=== PATIENT | female | born 1970 | race Caucasian/White ===

== ENCOUNTER 2020-09-25 06:03 | Day surgery (SDC) | payer BC ==
[~2020-09-25] VITALS: Ht 152.4 cm; Wt 71.7 kg
--- NOTE | 2020-09-25 07:42 | NUR ---
Ambulatory in Day Surgery History, Chart, Medications and Allergies reviewed before start of procedure.Patient confirms NPO status and agrees with scheduled surgery. Patient reports completing Chlorhexadine shower X2 prior to admission to hospital.Surgical site prepped with 2% Chlorhexidine cloth wipe.
--- NOTE | 2020-09-25 13:05 | NUR ---
PATIENT CAME BACK FROM PACU TODAY 09/25/20 AT AROUND 1215. SHE IS ALERT AND ORIENTED X4 WHILE AWAKE BUT WAS VERY SLEEPY THOUGH WAS EASILY AROUSABLE. VS ARE WNL AND IS ON 2L OXYGEN NC. PATIENT DENIES PAIN AT THIS TIME. THE 4 LAP SITES ARE C/D/I. STOMACH IS TENDER AND HAS HYPERACTIVE BOWEL TONES. SHE IS ABLE TO WIGGLE FINGERS AND TOES WHEN ASKED. DENIES NUMBNESS AND TINGLING. CALL LIGHT IS WITHIN REACH. SHE IS CURRENTLY LAYING IN BED WITH EQUAL/EVEN RESP. IS AT BEDSIDE WITH HER.
--- NOTE | 2020-09-25 14:59 | NUR ---
SHIFT SUMMARY: POD 0 ROBOTIC TOTAL HYSTERECTOMY PATIENT IS ALERT AND ORIENTED X4 AND IS MUCH MORE AWAKE. VS ARE WNL AND IS ON RA. SHE DENIES PAIN AT THIS TIME BUT HAS PAIN MEDICATIONS AVAILABLE IN THE [facility]. HER 4 DERMABOND SITES ON HER ABD ARE C/D/I. SHE HAS HYPERACTIVE BOWEL TONES. SHE DENIES NUMBNESS AND TINGLING. PATIENT IS ABLE TO WIGGLE FINGERS AND TOES. VALLE IS PATENT WITH NO KINKS IN TUBING. SHE IS TOLERATING SMALL AMOUNTS OF PO INTAKE. CALL LIGHT WITHIN REACH. SHE IS CURRENTLY LAYING IN BED WATCHING TV. AT BEDSIDE. THE PLAN IS TO DISCHARGE HOME POSSIBLY LATER TODAY IF NOT TOMORROW.
--- NOTE | 2020-09-25 19:20 | NUR ---
RECEIVED REPORT AND ASSUMED CARE OF PT. SHE IS SITTING UP IN BED PLAYING A GAME ON HER PHONE. SHE STATES THAT SHE FELT A MINIMAL AMOUNT OF DISCOMFORT IN HER ABDOMEN AFTER COUGHING, BUT THAT OTHERWISE SHE IS NOT EXPERIENCING PAIN AT THIS TIME. PAIN MANAGEMENT DISCUSSED. SHE DENIES ANY OTHER NEEDS AT THIS TIME. WCTM.
[2020-09-26 04:37] LABS: BASOPHILS ABSOLUTE AUTO 0.02 K/mm3 (0.00-0.23); BASOPHILS PERCENT AUTO 0 % (0-2); EOSINOPHILS PERCENT AUTO 0 % (0-6); Hematocrit 39.4 % (33.0-51.0); Hemoglobin 13.4 g/dL (11.5-16.0); IMMATURE GRAN ABSOLUTE AUTO 0.07 K/mm3 (0.00-0.10); IMMATURE GRAN PERCENT AUTO 1 % (0-1); LYMPHOCYTES ABSOLUTE AUTO 1.19 K/mm3 (0.84-5.20); LYMPHOCYTES PERCENT AUTO 8 % (21-46); MONOCYTES ABSOLUTE AUTO 1.19 K/mm3 (0.16-1.47); MONOCYTES PERCENT AUTO 8 % (4-13); Mean Corpuscular HGB 32.2 pg (26.0-34.0); Mean Corpuscular Volume 95 fL (80-100); Mean Platelet Volume 10.8 fL (9.1-12.4); NEUTROPHILS ABSOLUTE AUTO 13.01 K/mm3 (1.96-9.15); NEUTROPHILS PERCENT AUTO 84 % (41-73); Platelet Count 334 K/mm3 (150-400); RDW Coefficient Variation 11.6 % (11.7-14.2); RDW Standard Deviation 40.3 fL (35.1-46.3); Red Blood Cell Count 4.16 M/mm3 (3.80-5.20); White Blood Cell Count 15.48 K/mm3 (4.00-11.30)
--- NOTE | 2020-09-26 06:21 | NUR ---
SHIFT SUMMARY: LETICIA IS A&OX4. VSS, NO ACUTE EVENTS OVERNIGHT. SHE REPORTS MINIMAL PAIN, ONE DOSE OF TORADOL GIVEN. TORI DISCONTINUED THIS AM, SALINE LOCKED. SHE IS TOLERATING PO INTAKE WELL, INDEPENDENT IN THE ROOM. ABDOMINAL BINDER IN PLACE, LAP SITES C/D&I. SHE REPORTS BEING READY TO GO HOME. SHE IS LYING IN BED WITH THE CALL LIGHT IN REACH. WILL REPORT TO DAY SHIFT RN.
--- NOTE | 2020-09-26 08:18 | NUR ---
pt denies n/v no flatus has not voided since ellis cath removed meds given as sched pt denies needing pain meds
--- NOTE | 2020-09-26 08:51 | NUR ---
pt done eating breakfast
--- NOTE | 2020-09-26 09:53 | NUR ---
pt oob amb in room voided 400 ml
[2020-09-26] MEDS ORDERED: DOCU100 PO (11:17)
[2020-09-26] MEDS ORDERED: IBU800 MG PO (11:18)
[2020-09-26] MEDS ORDERED: ESTR2 PO (11:18)
--- NOTE | 2020-09-26 11:33 | NUR ---
pt voided a 2nd time no vag bleeding with this void pt denies needing pain meds
--- NOTE | 2020-09-26 12:20 | NUR ---
wonderly by to see pt ok to discharge home
--- NOTE | 2020-09-26 12:50 | NUR ---
discharge instructions reviewed with pt verbalized rx given no acute changes amb to car with spouse
== END 2020-09-26 13:00 | disposition home or self-care (01) ==
LOC: ORSCMMR 06:03 → ORD 07:30 → SURS 11:26 → ORSCMMR 09-26 13:00
PROVIDERS: Obstetrics & Gynecology
PROC: 8E0W4CZ Robotic Assisted Procedure of Trunk Region, Percutaneous Endoscopic Approach (ICD-10-PCS; principal; 2020-09-25 07:30)
PROC: 0UT24ZZ Resection of Bilateral Ovaries, Percutaneous Endoscopic Approach (ICD-10-PCS; principal; 2020-09-25 07:30)
PROC: 0UT94ZZ Resection of Uterus, Percutaneous Endoscopic Approach (ICD-10-PCS; principal; 2020-09-25 07:30)
PROC: 0UT74ZZ Resection of Bilateral Fallopian Tubes, Percutaneous Endoscopic Approach (ICD-10-PCS; principal; 2020-09-25 07:30)
DX: N92.1 Excessive and frequent menstruation with irregular cycle (principal); D25.0 Submucous leiomyoma of uterus; D50.0 Iron deficiency anemia secondary to blood loss (chronic); N80.0 Endometriosis of uterus; N84.0 Polyp of corpus uteri; F17.210 Nicotine dependence, cigarettes, uncomplicated
CPT/HCPCS: 58573; S2900; 36415; 85025; 86850; 86900; 86901; 88307; A9270; J0690; J1100; J1885; J2250; J2405; J2704; J3010; J7120